=== PATIENT | male | born 1990 | race African-American/Black ===

== ENCOUNTER 2017-01-24 00:05 | Emergency (ER) | payer OTHER ==
[~2017-01-24] VITALS: Ht 208.3 cm; Wt 89.5 kg
[2017-01-24 00:08] VITALS: Ht 208.3 cm; Wt 89.5 kg
[2017-01-24] MEDS ORDERED: DIPHTH/TET/ACEL PERTUSS (ADULT) 0.5 ML VIAL IM* ONE (00:30)
--- NOTE | 2017-01-24 00:33 | ERD ---
ER Documentation Chief Complaint Date/Time DATE: 01/24/17 TIME: 00:07 Chief Complaint HPI 26-year-old male here with an abrasion. Needs tetanus updated. No other complaints ROS All systems reviewed and are negative except as per history of present illness. Physical Exam Physical Exam Const: [] Head: Atraumatic Eyes: Normal Conjunctiva ENT: Normal External Ears, Nose and Mouth. Neck: Full range of motion..~ No meningismus. Resp: Clear to auscultation bilaterally Cardio: Regular rate and rhythm, no murmurs Abd: Soft, non tender, non distended. Normal bowel sounds Skin: No petechiae or rashes Back: No midline or flank tenderness Ext: No cyanosis, or edema Neur: Awake and alert Psych: Normal Mood and Affect Procedures/MDM Medical decision-making: Very pleasant patient for abrasion. Tetanus updated. Follow-up with PCP Departure Diagnosis: Primary Impression: Abrasion Condition: Stable Patient Instructions: MARGE Brewer Jan 24, 2017 00:33
== END 2017-01-24 00:53 | disposition home or self-care (01) ==
LOC: FTE 00:05
DX: S50.312A Abrasion of left elbow, initial encounter (principal); X58.XXXA Exposure to other specified factors, initial encounter; Y92.9 Unspecified place or not applicable
CPT/HCPCS: 90471; 90715